=== PATIENT | male | born 1990 | race Caucasian/White ===

== ENCOUNTER 2024-12-10 16:16 | Emergency (ER) | payer SELFPAY ==
[2024-12-10 16:21] VITALS: BP 124/80
[2024-12-10 16:47] VITALS: BMI 26.9
[2024-12-10 17:06] LABS: Urine Albumin 2+ (Neg - Trace); Urine Bilirubin Negative (Negative); Urine Character Clear (Clear); Urine Color Yellow; Urine Glucose Negative (Negative); Urine Ketone 3+ (Negative); Urine Leukocyte Negative (Negative); Urine Nitrite Negative (Negative); Urine Occult Blood Negative (Negative); Urine Urobilinogen Negative (Neg - 1+)
[2024-12-10 17:23] LABS: Urine Bacteria Few (Negative); Urine Mucus Moderate
--- NOTE | 2024-12-10 17:44 | ED.GENMED ---
History of Present Illness
General
Chief Complaint: Skin Problem
Source: patient and spouse
Exam Limitations: none
Time Seen by Provider: 12/10/24 17:09
Nursing documentation reviewed up to this point in time: agreed with
History of Present Illness
History of Present Illness:
34-year-old male presenting to the emergency department today with concerns of rash to his mouth over the past 2 days mainly an ulcer to the right lip and also some discomfort to his throat. He also felt slight comfort and burning sensation to his
penis. Denies any trouble urination denies any abdominal pain chest pain shortness of breath. No fevers.
Past History
Past History
ED Past Medical History: Psychiatric (ADHD)
Social History
Personal: Single
Review of Systems
Review of Systems
Allergies reviewed?: Yes
All Other Systems: ROS reviewed and negative except as documented in HPI and ROS
Phy Exam
Physical Exam
Physical Exam:
GENERAL: Alert , in no apparent distress
EYE: pupils equal and reactive
NECK: Supple, no significant adenopathy.
ENT: Shallow ulcer to the right anterior lip posterior pharynx with small shallow ulcerations grossly patent airway no significant swelling. o/p clr, mmm.
CARDIAC: Regular rate and rhythm .
LUNGS: Clear breath sounds bilaterally, no acute respiratory distress, no wheezes/rales/rhonchi
ABDOMEN: Penis without any specific lesions soft, without focal tenderness, no r/g, no cvat
NEUROLOGICAL: Alert and oriented, no focal neuro deficits
SKIN: Warm and dry, skin intact.
MUSCULOSKELETAL: No edema, well perfused.
PSYCH: Normal and appropriate interaction.
Course
Orders/Labs/Results
Orders:
Orders
12/10/24 16:55
Urinalysis Reflex To Culture Urgent
Date Specimen was Collected: 12/10/24
Time Specimen was Collected: 16:52
Urine Microscopic Reflex Cult Urgent
12/10/24 17:44
Valacyclovir HCl [Valtrex] 1,000 mg PO ONCE ONE
Abnormal Lab Results
12/10/24
16:55
Urine Ketones 3+ A
(Negative)
Urine RBC 3-6 A /HPF
(0-2)
Urine Bacteria (Reflex) Few A
(Negative)
Urine Albumin (Reflex) 2+ A
(Neg - Trace)
Vital Signs
Initial and Last Documented VS:
Initial Vital Signs
Pulse Resp BP Pulse Ox
110 18 124/80 96
12/10/24 16:21 12/10/24 16:21 12/10/24 16:21 12/10/24 16:21
Last Documented Vital Signs
Pulse Resp BP Pulse Ox
110 18 124/80 96
12/10/24 16:21 12/10/24 16:21 12/10/24 16:21 12/10/24 16:21
MDM/Problems Addressed
MDM/Problems Addressed:
34-year-old male presenting to the emergency department today with concerns of shallow ulcer to the back of his throat to his lip also some mild discomfort tip of the penis. Ulcers appear to be consistent with likely herpes virus. Patient started
on antiviral advised for close outpatient follow-up for further treatment and monitoring. Return precautions given.
*Critical Care Note
Total Time (30-74mins, 75-104mins- exclusive of procedures): Not Applicable
ED Attending Note
-
Portions of this chart may have been created with voice recognition software.� Occasional wrong word or��sound alike� substitutions may have occurred due to the inherent limitations of voice recognition software.
Discharge Plan
Departure
Patient Disposition: Home (Routine Discharge)
Date of Disposition: 12/10/24
Time of Disposition: 17:45
Patient with high blood pressure during this ER visit?: No
Condition: Good
Covid-19: Not Applicable
Discharge Problem:
Herpes simplex
Instructions: Oral Herpes
Prescriptions:
New
valacyclovir [Valtrex] 1 gram tablet
1,000 mg PO BID 7 Days Qty: 14 0RF
No Action
FOCALIN XR
15 mg PO DAILY
Referrals:
NONE,* [Family Provider] -
Activity Restrictions/Additional Instructions:
You came to the emergency department today with concerns of a rash. You are found to have likely herpes. Please take the prescribed at occasion and follow-up closely with your primary care doctor. Return for any worsening, new or concerning
symptoms.
Interventions
Interventions:
*Risk Screen - Suicide Last Done: 12/10/24 16:21
*General Assessment Last Done: 12/10/24 16:21
*Neglect/Abuse Screening Last Done: 12/10/24 16:46
*ED- Fall Risk Assessment Last Done: 12/10/24 16:21
*ED COVID-19 Vaccine History Last Done: 12/10/24 16:21
*Nursing Disposition Last Done: 12/10/24 17:59
ED-Skin Assessment Last Done: 12/10/24 16:46
Discharge Date and Time
Discharge Date/Time: 12/10/24 17:59
Print Language: SOMALI
[2024-12-10] MEDS: VALTREX 1000 MG PO (17:53)
== END 2024-12-10 17:59 | disposition home or self-care (01) ==
LOC: EMR 16:16
PROVIDERS: EMERGENCY PHYSICIAN Emergency Medicine
DX: B00.1 Herpesviral vesicular dermatitis (principal); F90.9 Attention-deficit hyperactivity disorder, unspecified type
CPT/HCPCS: 99283; 81003; 81015